=== PATIENT | female | born 1970 | race Caucasian/White ===

== ENCOUNTER 2020-10-26 13:03 | Outpatient (CLI) | payer BC, SELFPAY ==
--- NOTE | 2020-10-26 13:07 | MM_ITS ---
WS: [id number] SCREENING DIGITAL MAMMOGRAM WITH CAD HISTORY: SCREENING COMPARISON: 08/09/2019, 07/22/2018, 07/21/2017 Bilateral CC and MLO views submitted. Computer aided detection analyzed. Breast composition: The breasts are extremely dense, which lowers the sensitivity of mammography. Inc reasing asymmetry in the LEFT MLO projection above the nipple near the axillary tail measures 12 mm. This asymmetry is increased slightly in size since the last examination. Not definitely visualized on the CC projection. MM/[place] [id number] IMPRESSION: BI-RADS: 0-Incomplete: Need additional imaging evaluation FOLLOW UP: Need Additional Imaging LEFT breast: Spot compression views ( MLO). True ML. Ultrasound to follow if ab normality persists.
== END 2020-10-26 13:04 | disposition home or self-care (01) ==
LOC: RADSHAW 13:06
PROVIDERS: PCP Nurse Practitioner Family; Visit Provider Nurse Practitioner Family
DX: Z12.31 Encounter for screening mammogram for malignant neoplasm of breast (principal); N64.89 Other specified disorders of breast
CPT/HCPCS: 77067

== ENCOUNTER 2020-11-16 08:34 | Outpatient (CLI) | payer BC, SELFPAY ==
--- NOTE | 2020-11-16 08:38 | US_ITS ---
WS: [id number] ADDITIONAL VIEWS LEFT MAMMOGRAM LEFT BREAST ULTRASOUND HISTORY: ABNORMAL MAMMOGRAM LT BREAST COMPARISON: 10/26/2020, 08/09/2019, 07/22/2018 and 07/21/2017 LEFT MAMMOGRAM: Spot compression views and true ML. Asymmetry persists on the LEFT MLO projection in the superior breast. This asymmetry may be within th e medial or lateral breast on the CC projection. No distortion. LEFT BREAST ULTRASOUND 2-D and color Doppler imaging submitted. Soft tissue mass in the LEFT breast at 1:00, 3 cm from the nipple. Mass is hypoechoic with very sligh tly lobulated borders measuring 1.3 x 0.7 x 1.2 cm. There is minimal increased vascularity. There is an additional cystic mass at 2:00, 2 cm from the nipple measuring 4 x 5.2 mm. US/US breast LT limited* [id number] IMPRESSION: BI-RADS: 4-Suspicious Finding-Biopsy Should Be Considered FOLLOW UP: Biopsy Recommended Ultrasound-guided biopsy recommended of the solid mass LEFT breast at 1:00, 3 c m from the nipple. This corresponds to the mammographic abnormality. New mass s nicolás 2014.
== END 2020-11-16 08:35 | disposition home or self-care (01) ==
LOC: RADSHAW 08:36
PROVIDERS: PCP Nurse Practitioner Family; Visit Provider Nurse Practitioner Family
DX: R92.8 Other abnormal and inconclusive findings on diagnostic imaging of breast (principal); N63.21 Unspecified lump in the left breast, upper outer quadrant
CPT/HCPCS: 76642; 77065

== ENCOUNTER 2020-11-22 12:31 | Outpatient (CLI) | payer BC, SELFPAY ==
--- NOTE | 2020-11-22 12:46 | US_ITS ---
WS: [id number] ULTRASOUND-GUIDED LEFT BREAST BIOPSY CLINICAL INFORMATION: BREAST MASS LEFT COMPARISON: None. FINDINGS: The procedure including risks, benefits, and complications were discussed with the patient who agreed to proceed. Using sterile technique patient was prepped and draped in the usual sterile fashion. Aft er 1% lidocaine utilizing real-time ultrasound guidance 5 14-gauge cores were obtained of the left br east lesion at the 1 o'clock position. Subsequently a titanium clip was placed in the biopsy cavity. No immediate complications. PATHOLOGY DEMONSTRATES A. Breast, left, ultrasound-guided biopsy: -Fibroadenoma. -Sclerosing adenosis with stromal fibrosis. -No malignancy identified. US/[place] [id number] IMPRESSION: 1. Uncomplicated ultrasound-guided left breast biopsy. 2. The pathology demonstrates fibroadenoma with sclerosing adenosis. No malign dev identified. BI-RADS: 2-Benign FOLLOW UP: 1 Year Follow-up Recommend return to annual screening mammography.
== END 2020-11-22 12:32 | disposition home or self-care (01) ==
LOC: RAD 12:38
PROVIDERS: PCP Nurse Practitioner Family; Visit Provider Nurse Practitioner Family
DX: N63.20 Unspecified lump in the left breast, unspecified quadrant (principal); D24.2 Benign neoplasm of left breast
CPT/HCPCS: 19083; 88305

== ENCOUNTER 2022-01-31 07:26 | Outpatient (CLI) | payer BC, SELFPAY ==
--- NOTE | 2022-01-31 07:40 | MM_ITS ---
WS: [id number] Bilateral screening 3D tomosynthesis digital mammogram, 01/31/2022 Clinical Data: SCREENING Comparison: 11/16/2020, 10/26/2020, 08/09/2019, 07/22/2018, 07/21/2017, 06/11/2016, 04/06/2015. Findings: The breast parenchymal pattern shows heterogeneous density No spiculated masses or clustered calcific ations are seen. There are no secondary signs of carcinoma. The density in the superior aspect of the left breast shows a biopsy clip and there as been no change. There are lymph nodes in both axilla. MM/[place] [id number] Impression: 1. Negative bilateral mammogram unchanged. 2. Recommend annual screening mammograms. BIRADS: 2-Benign FOLLOW UP: 1 Year Follow-up The CAD abstract checker was used.
== END 2022-01-31 07:27 | disposition home or self-care (01) ==
PROVIDERS: PCP Nurse Practitioner Family; Visit Provider Nurse Practitioner Family
DX: Z12.31 Encounter for screening mammogram for malignant neoplasm of breast (principal)
CPT/HCPCS: 77063; 77067

== ENCOUNTER 2023-02-02 07:36 | Outpatient (CLI) | payer BC, SELFPAY ==
--- NOTE | 2023-02-02 07:44 | MM_ITS ---
WS: [id number] VIEWS: MLO and CC views both breasts. 3D digital tomosynthesis is also included in this exam. Comparison made with prior exam of 01/31/2022, 10/26/2020, 08/09/2019, 07/22/2018, 07/21/2017, 06/11/2016.. Findings: There was no sign of architectural distortion or suspicious calcification in either breast. Stable ap pearing nodular density containing a biopsy clip is noted in the posterior upper left breast on the M LO view only. This is probably in the lateral aspect of the breast. No change in either breast since the last study.Heterogeneously dense MM/[place] [id number] Impression: BI-RADS: 2-Benign FOLLOW-UP: 1 Year Follow-up This mammogram was also analyzed by the Computer Aided Detection System [employer] Super[employer].
== END 2023-02-02 07:37 | disposition home or self-care (01) ==
PROVIDERS: PCP Nurse Practitioner Family; Visit Provider Nurse Practitioner Family
DX: Z12.31 Encounter for screening mammogram for malignant neoplasm of breast (principal)
CPT/HCPCS: 77063; 77067

== ENCOUNTER 2023-03-04 07:19 | Day surgery (SDC) | payer BC, SELFPAY ==
[2023-03-02 12:31] VITALS: BMI 18.7
[2023-03-04 07:37] VITALS: BP 137/66; PULSE 93; RESP 18; TEMP 36.7; O2SAT 100
[2023-03-04] MEDS: sodium chloride 0.9% 1,000 ML 30 ML IV (07:45)
[2023-03-04 07:46] LABS: OR HCG Qualitative Urine Negative (Negative)
--- NOTE | 2023-03-04 08:27 | ANES.PREANE2 ---
Pre-Anesthetic Assessment Height/Weight: Height 1.63 m Weight 49.442 kg Temp Pulse Resp BP Pulse Ox O2 Del Method 98.0 F 93 18 137/66 100 Room Air 03/04/23 07:37 03/04/23 07:37 03/04/23 07:37 03/04/23 07:37 03/04/23 07:37 03/04/23 07:37 Preop Diagnosis: screening Operation Date: 03/04/23 09:00 Proposed Procedures p [id number] Colon Z12.11(Not Applicable) - Waldemar Olea DO Familial anesthetic complications: none Last intake: Intake Last Liquid Date 03/03/23 Last Liquid Time 20:00 Last Solid Date 03/02/23 Last Solid Time 19:00 Social Alcohol (on weekends) Exam alert, oriented x 3, clear to auscultation bilaterally and regular rate & rhythm Airway Submandibular: within normal limits Cervical ROM: within normal limits Mallampati: Class II Dentition: full Pulmonary None reported CV/HEM None reported None reported Hepatic None reported GI None reported Metabolic None reported Musc/skel None reported Neuropsych None reported Anesthetic Plan ASA status: 1 Anesthesia: MAC Medications/Allergies Home Medications Medication Instructions Recorded Confirmed Last Taken Type calcium carbonate 500 mg-vitamin 1 tab PO DAILY 03/02/23 03/04/23 03/02/23 History D3 5 mcg (200 unit) tablet (Calcium 500 + D) [id number]-semnwevym-mqj C-Mn 500 1 cap PO DAILY 03/02/23 03/04/23 03/02/23 History mg-400 mg capsule (Glucosamine Chondroitin Maximum Strength) multivitamin with min 1 tab PO DAILY 03/02/23 03/04/23 03/02/23 History no.36-iron,carbonyl-FA 16 mg iron-0.38 mg tablet (Geritol Complete) omega 7-bbp-dbe-fish oil 60 mg-90 1 cap PO DAILY 03/02/23 03/04/23 03/02/23 History mg-500 mg capsule (Fish Oil) Allergies Allergy/AdvReac Type Severity Reaction Status Date / Time diphtheria, pertussis, Allergy ALGY-Anaphy Verified 03/04/23 07:37 tetanus vacc laxis Current Medications Generic Name Dose Route Start Last Admin Trade Name Freq PRN Reason Stop Dose Admin Sodium Chloride 1,000 mls @ 30 mls/hr 03/04/23 07:30 03/04/23 07:45 Sodium Chloride 0.9% IV 03/05/23 07:29 30 mls/hr .Q24H MAGED Administration PFSH Anesthesia Family History (Updated 03/02/23 @ 12:30 by Maxine Leiva RN) Father CAD (coronary artery disease) Mother COPD (chronic obstructive pulmonary disease) Female Reproductive History Date of last menstrual period: 01/26/23 Data Anesthesia Cardiac Studies: No Data to Display
--- NOTE | 2023-03-04 09:10 | PM.HP ---
Providers/Chief Complaint Primary Care Provider: Letha Johnson Chief Complaint: Z12.11 History of Present Illness Ginger Loo is a 52 year old female here for her first screening colonoscopy. She denies any family history of colon cancer, abdominal pain, nausea, emesis, diarrhea, constipation, hematochezia and/or melena. Medications/Allergies Home Medications Medication Instructions Recorded Confirmed Last Taken Type calcium carbonate 500 mg-vitamin 1 tab PO DAILY 03/02/23 03/04/23 03/02/23 History D3 5 mcg (200 unit) tablet (Calcium 500 + D) vqslpzgiyli-jemowawnu-vty C-Mn 500 1 cap PO DAILY 03/02/23 03/04/23 03/02/23 History mg-400 mg capsule (Glucosamine Chondroitin Maximum Strength) multivitamin with min 1 tab PO DAILY 03/02/23 03/04/23 03/02/23 History no.36-iron,carbonyl-FA 16 mg iron-0.38 mg tablet (Geritol Complete) omega 7-hxk-dwi-fish oil 60 mg-90 1 cap PO DAILY 03/02/23 03/04/23 03/02/23 History mg-500 mg capsule (Fish Oil) Allergies Allergy/AdvReac Type Severity Reaction Status Date / Time diphtheria, pertussis, Allergy ALGY-Anaphy Verified 03/04/23 07:37 tetanus vacc laxis PFSH Acute PFSH: Family History (Updated 03/02/23 @ 12:30 by Maxine Leiva RN) Father CAD (coronary artery disease) Mother COPD (chronic obstructive pulmonary disease) Female Reproductive History: Date of last menstrual period: 01/26/23 Vitals/I&O/Wt Last Vital Signs Temp 98.0 F 03/04/23 07:37 Pulse 93 03/04/23 07:37 Resp 18 03/04/23 07:37 BP 137/66 03/04/23 07:37 Pulse Ox 100 03/04/23 07:37 O2 Del Method Room Air 03/04/23 07:37 Weight last 48 hrs Weight 109 lb A&P Assessment and plan (1) Colon cancer screening: Plan Colonoscopy The risks and benefits of the procedure, including bleeding, infection, intestinal perforation requiring surgery, missed lesion were explained to the patient. The patient is understanding of the risks and wishes to proceed. Attestations Medical Necessity Statement*: Home Coding Level of Care Code Acute Code for Chg Fwd Diagnoses Colon cancer screening Z12.11
[2023-03-04 09:29] VITALS: BP 132/81; PULSE 87; RESP 16; TEMP 36.2; O2SAT 97
[2023-03-04 09:39] VITALS: BP 139/81; PULSE 90; RESP 16; O2SAT 95
--- NOTE | 2023-03-04 15:02 | ANE.PACU2 ---
Inpatient post-anesthesia follow up: Airway intact: Yes Vital signs: Temperature 97.2 F Pulse Rate 90 Respiratory Rate 16 Blood Pressure 139/81 Pulse Oximetry 95 Oxygen Delivery Me thod Room Air Oxygen Flow Rate Fraction of Inspir ed Oxygen Hydration adequate: Yes Nausea and vomiting: No Pain level: 2 Mental status: Baseline
== END 2023-03-04 09:51 | disposition home or self-care (01) ==
PROVIDERS: Anesthesiology; PCP Nurse Practitioner Family; Visit Provider Surgery
PROC: 0DJD8ZZ Inspection of Lower Intestinal Tract, Via Natural or Artificial Opening Endoscopic (ICD-10-PCS; CPT 45378; principal; 2023-03-04 09:00)
DX: Z12.11 Encounter for screening for malignant neoplasm of colon (principal); K64.8 Other hemorrhoids
CPT/HCPCS: 45378; 84703; J2704; J7030

== ENCOUNTER 2024-05-06 07:45 | Outpatient (CLI) | payer BC, SELFPAY ==
--- NOTE | 2024-05-06 07:48 | MM_ITS ---
WS: [id number] BILATERAL SCREENING DIGITAL TOMOSYNTHESIS MAMMOGRAM WITH CAD HISTORY: SCREENING COMPARISON: 02/02/2023, 07/22/2018 Bilateral CC and MLO views with tomosynthesis and synthetic mammography submitted. Computer aided det ection analyzed. Breast composition: There are scattered areas of fibroglandular density. No suspicious masses, microc alcifications or architectural distortion. Reidentified is a stable mass in the upper outer quadrant LEFT breast which contains a biopsy clip. This has been present on multiple prior examinations. There are a few additional benign calcifications within the RIGHT breast. MM/[place] [id number] IMPRESSION: BI-RADS: 2-Benign FOLLOW UP: 1 Year Follow-up
== END 2024-05-06 07:46 | disposition home or self-care (01) ==
PROVIDERS: PCP Nurse Practitioner Family; Visit Provider Nurse Practitioner Family
DX: Z12.31 Encounter for screening mammogram for malignant neoplasm of breast (principal)
CPT/HCPCS: 77063; 77067

== ENCOUNTER 2025-08-16 09:15 | Outpatient (CLI) | payer BC, SELFPAY ==
--- NOTE | 2025-08-16 09:20 | MM_ITS ---
WS: [id number] BILATERAL SCREENING DIGITAL TOMOSYNTHESIS MAMMOGRAM WITH CAD HISTORY: SCREENING COMPARISON: 05/06/2024, 02/02/2023, 01/31/2022 Bilateral CC and MLO views with tomosynthesis and synthetic mammography submitted. Computer aided detection analyzed. Breast composition: The breasts are extremely dense, which lowers the sensitivity of mammography. No suspicious masses, microcalcifications or architectural distortion. Mass in the upper outer quadrant LEFT breast at a posterior depth has been previously biopsied and contains a biopsy clip. Mass has been present on multiple prior studies and stable. MM/MM scr BI tomosynthesis [id number] IMPRESSION: BI-RADS: 2 - Benign FOLLOW UP: 1 Year Follow-up
== END 2025-08-16 09:16 | disposition home or self-care (01) ==
LOC: MOBLMAM 09:17
PROVIDERS: PCP Nurse Practitioner Family; Visit Provider Nurse Practitioner Family
DX: Z12.31 Encounter for screening mammogram for malignant neoplasm of breast (principal); R92.343 Mammographic extreme density, bilateral breasts; N63.21 Unspecified lump in the left breast, upper outer quadrant
CPT/HCPCS: 77063; 77067